=== PATIENT | female | born 1970 | race Caucasian/White ===

== ENCOUNTER 2017-08-01 13:40 | Emergency (ER) | payer BC, SELFPAY ==
[2017-08-01] MEDS ORDERED: Lorazepam 0.5 MG TAB ONE (14:20)
[2017-08-01] MEDS ORDERED: Ketorolac Tromethamine 30 MG/ML VIAL ONE (15:12)
== END 2017-08-01 15:18 | disposition home or self-care (01) ==
LOC: BURERS 13:40
DX: F41.9 Anxiety disorder, unspecified (principal); E03.9 Hypothyroidism, unspecified; F31.9 Bipolar disorder, unspecified
CPT/HCPCS: 96372; J1885